=== PATIENT | male | born 1970 | race Caucasian/White ===

== ENCOUNTER 2025-03-21 10:24 | Emergency (ER) | payer OTHER, SELFPAY ==
[2025-03-21 10:34] VITALS: BP 118/70; PULSE 62; RESP 16; TEMP 37.1; O2SAT 98
--- NOTE | 2025-03-21 10:55 | ED.EAR ---
HPI - Ear Problem General Chief complaint: Ear <Zoerachel Loyola PRESENTATION DESIGNER - Last Filed: 03/21/25 11:07> Stated complaint: Ears Irritation/Headache <Zoe Loyola PRESENTATION DESIGNER - Last Filed: 03/21/25 11:07> Source: patient <Zoe GómezShannon Loyola PRESENTATION DESIGNER - Last Filed: 03/21/25 11:07> Mode of arrival: ambulatory <Zoe Loyola PRESENTATION DESIGNER - Last Filed: 03/21/25 11:07> Limitations: no limitations <Zoeisidro Loyola PRESENTATION DESIGNER - Last Filed: 03/21/25 11:07> History of Present Illness HPI Narrative: Patient is a 54-year-old male who presents to the clinic with complaints of bilateral ear pain for 2 days. He has not been taking anything over the counter. Denies any hearing loss. <Zoe Loyola PRESENTATION DESIGNER - Last Filed: 03/21/25 11:07> Patient is a 54-year-old male who presents to the clinic with complaints of bilateral ear pain for 2 days. He has not been taking anything over the counter. Patient reports that he has had ongoing issues with left ear since childhood. Was seen by ENT at one time and was told he needed to keep water out of ear and that was the reason he was getting infections. Patient states he has had decreased hearing in that ear since. Also reports having significant drainage and blood come out of right ear since symptoms started. Does not have a PCP at this time. <Velvet Saunders, PRESENTATION DESIGNER - Last Filed: 03/21/25 12:53> Related Data Allergies/adverse reactions: Allergies Allergy/AdvReac Type Severity Reaction Status Date / Time No Known Allergies Allergy Verified 03/21/25 10:26 <Zoe Loyola PRESENTATION DESIGNER - Last Filed: 03/21/25 11:07> Review of Systems Review of Systems: CONSTITUTIONAL: Denies malaise, chills, ?or fever. EYES: Denies visual changes, redness, or discharge. ENT: Denies rhinorrhea, congestion, sinus pain, and sore throat. ?Reports bilateral ear pain. CARDIOVASCULAR: Denies chest pain, palpitations, or edema. RESPIRATORY: Denies cough or dyspnea. GASTROINTESTINAL: Denies abdominal pain, nausea, vomiting, diarrhea SKIN: Denies rash or itching. MUSCULOSKELETAL: Denies myalgia. NEUROLOGIC: Denies headache. <Zeo Loyola APRN - Last Filed: 03/21/25 11:07> All systems reviewed & are unremarkable except as noted in HPI and below <Zoe Loyola APRN - Last Filed: 03/21/25 11:07> PMFSH Past Medical History Medical History: Medical History IBS (irritable bowel syndrome) <Zoe Loyola APRN - Last Filed: 03/21/25 11:07> Family History Family History: Family History Mother Cancer Hypertension Sibling Cancer Alcoholism <Zoe Loyola APRN - Last Filed: 03/21/25 11:07> Social History Social History: Social History Smoking status: Current every day smoker Tobacco type: cigarettes Alcohol intake: never Substance use: current Living arrangements: with family Occupation/Education: occupation Additional occupation/education comments: [employer] Gender identity (if verbalized by the patient): Male Sexual Orientation (if Verbalized by the Patient): Straight or Heterosexual <Zoe Loyola APRN - Last Filed: 03/21/25 11:07> Comments At time of signature, I have reviewed and agree with nursing past medical, surgical, social and family history unless otherwise noted. Please see nursing chart for further information. There is no relevant family history pertinent to the presenting complaint. <Zoe Loyola APRN - Last Filed: 03/21/25 11:07> Exam Narrative: GENERAL: Well-appearing, well-nourished, and in no acute distress. HEAD: Normocephalic EYES: PERRLA, conjunctivae clear ENT: Nares clear. Mucous membranes moist. ?Bilateral TM erythematous, bulging and intact; canal erythema and edema noted, no drainage, ?no tragal tenderness. Oropharynx not erythematous without lesions. ?no drooling, no hoarseness, no trismus, uvula midline. NECK: Supple. No lymphadenopathy CHEST: Clear to auscultation, breath sounds equal. No wheezing, rhonchi, rales, or stridor. No respiratory distress, speaks in full sentences. HEART: Regular rate and rhythm. No murmur heard. SKIN: Warm, dry, no rash. NEURO: Alert and oriented x3. PSYCH: Normal mood and affect. <Zoe Loyola, PRESENTATION DESIGNER - Last Filed: 03/21/25 11:07> GENERAL: Well-appearing, well-nourished, and in no acute distress. HEAD: Normocephalic EYES: PERRLA, conjunctivae clear ENT: Nares clear. Mucous membranes moist. ?Bilateral TM erythematous, bulging and intact; canal erythema and edema noted, drainage in right ear canal, ?no tragal tenderness. Oropharynx not erythematous without lesions. ?no drooling, no hoarseness, no trismus, uvula midline. NECK: Supple. No lymphadenopathy CHEST: Clear to auscultation, breath sounds equal. No wheezing, rhonchi, rales, or stridor. No respiratory distress, speaks in full sentences. HEART: Regular rate and rhythm. No murmur heard. SKIN: Warm, dry, no rash. NEURO: Alert and oriented x3. PSYCH: Normal mood and affect. <Velvet Saunders, PRESENTATION DESIGNER - Last Filed: 03/21/25 12:53> Course Course Level of Care: Express Care Visit <Zoe Loyola, PRESENTATION DESIGNER - Last Filed: 03/21/25 11:07> Vital Signs Vital signs: Vital Signs Temperature 37.1 C 03/21/25 10:34 Pulse Rate 62 03/21/25 10:34 Respiratory Rate 16 03/21/25 10:34 Blood Pressure 118/70 03/21/25 10:34 Pulse Oximetry 98 03/21/25 10:34 Oxygen Delivery Room Air 03/21/25 10:34 Temperature 37.1 C 03/21/25 10:34 Pulse Rate 62 03/21/25 10:34 Respiratory Rate 16 03/21/25 10:34 Blood Pressure 118/70 03/21/25 10:34 Pulse Oximetry 98 03/21/25 10:34 Oxygen Delivery Room Air 03/21/25 10:34 Reviewed <Zoe Loyola, PRESENTATION DESIGNER - Last Filed: 03/21/25 11:07> Vital Signs Temperature 37.1 C 03/21/25 10:34 Pulse Rate 62 03/21/25 10:34 Respiratory Rate 16 03/21/25 10:34 Blood Pressure 118/70 03/21/25 10:34 Pulse Oximetry 98 03/21/25 10:34 Oxygen Delivery Room Air 03/21/25 10:34 Temperature 37.1 C 03/21/25 10:34 Pulse Rate 62 03/21/25 10:34 Respiratory Rate 16 03/21/25 10:34 Blood Pressure 118/70 03/21/25 10:34 Pulse Oximetry 98 03/21/25 10:34 Oxygen Delivery Room Air 03/21/25 10:34 <Velvet Saunders, PRESENTATION DESIGNER - Last Filed: 03/21/25 12:53> Medical Decision Making MDM Narrative Medical decision making narrative: Discussed physical exam findings. Antibiotics given for otitis media and otitis externa. Advised supportive measures and signs/symptoms to go to the ER. Pt is appropriate for outpatient treatment and follow up. <Zoe Loyola, PRESENTATION DESIGNER - Last Filed: 03/21/25 11:07> Differential Diagnosis Differential Diagnosis: otitis media, otitis externa. <Zoe Loyola, PRESENTATION DESIGNER - Last Filed: 03/21/25 11:07> Medical Records Medical records reviewed: Yes I reviewed the external patient's medical records. <Velvet Saunders, PRESENTATION DESIGNER - Last Filed: 03/21/25 12:53> Vital Signs Vital Signs: Vital Signs Temperature 37.1 C 03/21/25 10:34 Pulse Rate 62 03/21/25 10:34 Respiratory Rate 16 03/21/25 10:34 Blood Pressure 118/70 03/21/25 10:34 Pulse Oximetry 98 03/21/25 10:34 Oxygen Delivery Room Air 03/21/25 10:34 Temperature 37.1 C 03/21/25 10:34 Pulse Rate 62 03/21/25 10:34 Respiratory Rate 16 03/21/25 10:34 Blood Pressure 118/70 03/21/25 10:34 Pulse Oximetry 98 03/21/25 10:34 Oxygen Delivery Room Air 03/21/25 10:34 Reviewed. <Zoe Loyola PRESENTATION DESIGNER - Last Filed: 03/21/25 11:07> Vital Signs Temperature 37.1 C 03/21/25 10:34 Pulse Rate 62 03/21/25 10:34 Respiratory Rate 16 03/21/25 10:34 Blood Pressure 118/70 03/21/25 10:34 Pulse Oximetry 98 03/21/25 10:34 Oxygen Delivery Room Air 03/21/25 10:34 Temperature 37.1 C 03/21/25 10:34 Pulse Rate 62 03/21/25 10:34 Respiratory Rate 16 03/21/25 10:34 Blood Pressure 118/70 03/21/25 10:34 Pulse Oximetry 98 03/21/25 10:34 Oxygen Delivery Room Air 03/21/25 10:34 <Velvet Saunders, PRESENTATION DESIGNER - Last Filed: 03/21/25 12:53> Critical Care Time Critical Care Time Critical Care Time: No <Zoe Loyola PRESENTATION DESIGNER - Last Filed: 03/21/25 11:07> Discharge Plan Discharge Clinical Impression: Otitis media, Otitis externa <Zoe Loyoal PRESENTATION DESIGNER - Last Filed: 03/21/25 11:07> Patient Disposition: Home <Zoe Loyola APRN - Last Filed: 03/21/25 11:07> Condition: Stable <Zoe Loyola PRESENTATION DESIGNER - Last Filed: 03/21/25 11:07> Instructions: Ear Infection (AC) <Zoe Loyola PRESENTATION DESIGNER - Last Filed: 03/21/25 11:07> Additional Instructions: Take antibiotics as directed. Use ear drops as prescribed. Recommend antihistamine such as Benadryl, Zyrtec or Alpa for sinus congestion. Flonase nasal spray, 1 spray in each nostril once daily until symptoms improve Symptomatic treatment includes: rest, fluids, and increase humidity of the air at home. Tylenol every 8 hours as needed to reduce fever, pain. Please follow up a ears, nose, and throat doctor, as well as, establish care with a primary care doctor. If your symptoms persist, change or worsen significantly, go to the emergency department for further evaluation. <Zoe Loyola, PRESENTATION DESIGNER - Last Filed: 03/21/25 11:07> Patient Language: Yoruba <Zoe Loyola APRN - Last Filed: 03/21/25 11:07> Prescriptions: New amoxicillin 875 mg tablet 875 mg PO Q12H 7 Days Qty: 14 0RF ofloxacin 0.3 % drops 10 drp EACH EAR DAILY 7 Days Qty: 10 0RF ibuprofen 600 mg tablet 600 mg PO TID PRN (Reason: pain) Qty: 30 0RF <Zoe Loyola PRESENTATION DESIGNER - Last Filed: 03/21/25 11:07> Follow-up/Referrals: PHYSICIAN,SUPERVISORY HISTORIAN [Primary Care Provider] - <Zoe Loyola APRN - Last Filed: 03/21/25 11:07> Stand Alone Forms: Work/School Release IP <Zoe Loyola APRN - Last Filed: 03/21/25 11:07> Time of Disposition: 11:05 <Zoe Loyola APRN - Last Filed: 03/21/25 11:07> 11:05 <Velvet Saunders APRN - Last Filed: 03/21/25 12:53>
== END 2025-03-21 11:15 | disposition home or self-care (01) ==
DX: H66.93 Otitis media, unspecified, bilateral (principal); H60.93 Unspecified otitis externa, bilateral; F17.210 Nicotine dependence, cigarettes, uncomplicated
CPT/HCPCS: 99213; G0463